=== PATIENT | male | born 1995 | race Caucasian/White ===

== ENCOUNTER 2017-05-31 17:22 | Emergency (ER) | payer BC ==
[2017-05-31 17:54] LABS: Hematocrit 46.5 % (42.0-52.0); Hemoglobin 16.6 gm/dL (13.5-18.0); Mean Corpuscular Hemoglobin 29.3 pg (27-31); Mean Corpuscular Hgb Conc 35.7 g/dl (32-36); Mean Platelet Volume 9.9 fl (6.0-9.5); Neutrophil # 4.9 K/mm3 (1.3-6.0); Neutrophil % 58.7 % (42-75.0); Platelet Count 207 K/mm3 (150-450); Red Blood Count 5.67 M/mm3 (4.7-6.0); White Blood Count 8.4 K/mm3 (4.0-10.5)
--- OUTSIDE RECORDS SUMMARY | 2017-05-31 17:55 | XMS REPORT | Continuity of Care Document ---
:1995 Author Organization [facility] Address [place] [address] Care Team Providers Name Role Phone Jarad Laureano Primary Care Provider [phone] Source Comments This disclosure is being made pursuant to the [employer] program and maynot contain all information available regarding this patient.[facility] Active Allergies and Adverse Reactions Not on File Current Medications Be aware that medications may not be up to date as of this document. Alwaysverify current medications with the patient. Prescription Sig. Disp. Refills Start Date End Date Status Cetirizine HCl (ZYRTEC) 10 Take 10 mg by Active MG CAPS mouth as needed. Active Problems Not on file Social History Tobacco Use Types Packs/Day Years Used Date Never Smoker Smokeless Tobacco: Never Used Alcohol Use Drinks/Week oz/Week Comments Yes Last Filed Vital Signs Vital Sign Reading Time Taken Blood Pressure 158/102 02/20/2017 2:59 PM CDT Pulse 112 02/20/2017 2:59 PM CDT Temperature 37.8 C (100 F) 02/20/2017 2:59 PM CDT Respiratory Rate - - Height 1.778 m (5' 10") 02/20/2017 2:59 PM CDT Weight 84.823 kg (187 lb) 02/20/2017 2:59 PM CDT Body Mass Index 26.83 02/20/2017 2:59 PM CDT Oxygen Saturation - - Plan of Care Health Maintenance Due Date Last Done Comments HPV Vaccine (F:9-26YO,M: 9-22) (1 of 3 - Male 3 Dose 2008 Series) Meningococcal Vaccine (1 of 1) 2013 Influenza Immunization (#1) 2016 Tetanus/Pertussis (1 - Tdap) 2016 Results from Last 3 Months Not on file Insurance Payer Benefit Plan / Subscriber ID Type Phone Address Group [facility] PPO [id number] [place] of [place] [phone] [address] [facility] [place] [address] Home: [address] [phone] [place] [address]
[2017-05-31 18:07] LABS: Albumin * 4.7 gm/dl (3.4-5.0); Anion Gap 13.6 mmol/L (6.8-13.8); BUN/Creatinine Ratio 10.5 (9.0-21.6); Bilirubin, Total 0.3 mg/dL (0.0-1.1); Ca. Corrected For Albumin 8.7 mg/dL (8.4-10.2); Calcium * 9.6 mg/dL (7.9-10.9); Carbon Dioxide 26.2 mmol/L (24-32.6); Potassium 3.8 mmol/L (3.4-4.6); Total Protein 8.4 gm/dL (6.2-8.2)
[2017-05-31 18:18] LABS: Urine Appearance Clear; Urine Bacteria None Seen; Urine Bilirubin Negative (NEGATIVE); Urine Blood Negative /ul (NEGATIVE); Urine Color Pale Yellow; Urine Ketone Negative (NEGATIVE); Urine Nitrite Negative (NEGATIVE); Urine Protein Negative (NEGATIVE); Urine RBC None Seen /hpf (0-5); Urine Specific Gravity <=1.005 SP.GR. (1.005-1.030); Urine Urobilinogen Normal (NORMAL); Urine WBC None Seen /hpf (0-5)
[2017-05-31 18:25] VITALS: BP 116/84
--- NOTE | 2017-05-31 18:48 | ERNOTE ---
Abdominal HPI - Narrative Date of Service: 05/31/17 - General Chief Complaint: Abdominal Pain Time Seen by Provider: 05/31/17 17:41 Source: patient, family, RN notes reviewed Exam Limitations: no limitations - Immun/Allergies/Home Medications Immunizatons: IMMUNIZATION HX Immunizations Up to Date Yes Allergies/Adverse Reactions: Allergies No Known Allergies Allergy (Verified 05/31/17 17:32) Home Medications: HOME MEDICATIONS Fexofenadine HCl [Aller-Ease] 30 mg PO 05/31/17 [Last Taken Unknown] - Pain Score Pain Score #1 Pain Score: 0 Abdominal Pain Onset Location: RUQ Pain Radiation: no radiation - History of Present Illness Narrative: Is a 21-year-old male who presents to the emergency Department by private vehicle with his mother for right upper quadrant abdominal pain. This began earlier this morning after he had been eating some potato chips. The pain is currently not as bad as it had been earlier. He reports having a similar episode of right upper quadrant pain approximately 2 weeks ago. This only lasted for about an hour. He denies any additional symptoms. He is concerned that it could be his gallbladder or his appendix. Date (Duration): 05/31/17 Prior Abdominal Problems: Present: none Prior Treatment: Absent: recently seen Review of Systems - Review of Systems Constitutional: Absent: recent illness, fever, chills EYE: Present: no symptoms reported ENT: Present: no symptoms reported Respiratory: Absent: shortness of breath, cough Cardiology: Absent: chest pain, edema Gastrointestinal/Abdominal: Present: abdominal pain. Absent: nausea, vomiting, diarrhea, constipation, eating less, drinking less Genitourinary: Absent: dysuria, hematuria Musculoskeletal: Absent: back pain, muscle pain Skin: Absent: rash, lesions Neurological: Absent: headache, dizziness/light-headedness Endocrine: Present: no symptoms reported Hematologic/Lymphatic: Present: no symptoms reported Psych: Absent: anxiety, depressed - Patient's Past Medical History Patient History - Medical: No pertinent hx Patient History - Cardiac/Respiratory: No pertinent hx Patient History - Cancer: No Hx of Cancer Patient History - Surgical Procedures: Ear Tubes Patient History - Other: None - Social History Living Situations: parents Psych History: No pertinent hx Smoking Status: Never smoker Alcohol Use: rarely Drug Use: none - Immunizations Immunizations Up to Date: Yes Physical Exam - Physical Exam General Appearance: Present: wd/wn, alert, no apparent distress Neck: Present: normal inspection, nontender, supple Respiratory: Present: no respiratory distress, normal breath sounds, no accessory muscle use, lungs clear Cardiovascular/Chest: Present: regular rate, rhythm, no murmur, normal peripheral pulses Gastrointestinal/Abdominal: Present: normal bowel sounds, nontender, nondistended, soft. Absent: rebound, Fan sign, mass Back Exam: Present: normal inspection, no CVA tenderness Extremity Exam: Present: normal inspection, normal range of motion Neurological Exam: Present: alert, oriented, normal mood/affect Skin Exam: Present: normal color, warm/dry ED Progress - Results and Orders Patient's Lab Results:: I have reviewed the patient's lab results. - Vital Signs Patient's Vital Signs:: I have reviewed the patient's vital signs. Vital Signs: Vital Signs 05/31/17 05/31/17 17:25 18:24 Temperature 36.5 C Pulse Rate 99 Respiratory 18 Rate Blood Pressure 168/84 116/84 - X-Ray X-Ray #1 X-Ray: abdomen Interpretation: Interp. by me, Reviewed by me X-ray Comments: Nonobstructive bowel gas pattern with mild to moderate stool retention - Progress/Reassessment Chief Complaint: Abdominal Pain Progress:: Unchanged Departure - Departure Clinical Impression: Abdominal pain, acute, Constipation due to slow transit Condition: Good Instructions: Constipation, Adult, [id number] Referrals: Jarad Laureano DO [Primary Care Provider] -
[2017-05-31] MEDS: MAGNESIUM HYDROXIDE 30 ML UDC PO ONE (18:51)
[2017-05-31] MEDS ORDERED: MAGNESIUM HYDROXIDE 30 ML UDC ONE (18:51)
== END 2017-05-31 18:55 | disposition home or self-care (01) ==
LOC: ER 17:22
DX: K59.01 Slow transit constipation (principal)